=== PATIENT | male | born 1970 | race Caucasian/White ===

== ENCOUNTER 2024-04-05 17:35 | Emergency (ER) | payer OTHER ==
[~2024-04-05] VITALS: Ht 167.6 cm; Wt 63.0 kg
[2024-04-05 17:43] VITALS: O2SAT 99
[2024-04-05] MEDS ORDERED: BO1 TP (18:46)
[2024-04-05] MEDS ORDERED: IBUP-2028 MT (18:46)
[2024-04-05] MEDS: BACITRACIN ZINC OINT UDPKT TOP ONE (19:15)
[2024-04-05] MEDS: IBUPROFEN 400MG TABLET PO ONE (19:15)
[2024-04-05 19:30] VITALS: BP 121/74; PULSE 80; RESP 17; TEMP 36.39180; O2SAT 99
== END 2024-04-05 20:42 | disposition home or self-care (01) ==
LOC: ER 17:35
DX: T24.422A Corrosion of unspecified degree of left knee, initial encounter (principal); T24.421A Corrosion of unspecified degree of right knee, initial encounter; Y93.89 Activity, other specified; Y92.89 Other specified places as the place of occurrence of the external cause; Y99.8 Other external cause status
CPT/HCPCS: 73560; 99283

== ENCOUNTER 2025-01-05 09:23 | Emergency (ER) | payer OTHER, MEDICAID ==
[~2025-01-05] VITALS: Ht 167.6 cm; Wt 67.0 kg
[~2025-01-05 09:23] MED LIST: BO1 TP; IBUP-2028 MT
[2025-01-05 09:28] VITALS: O2SAT 100
[2025-01-05] MEDS: MORPHINE SULFATE 4 MG/ML INJ (FOR IV/IM USE) IV ONE (10:41)
[2025-01-05] MEDS ORDERED: ACET-2708 MT (13:36)
[2025-01-05] MEDS ORDERED: NAPR-681 MT (13:36)
[2025-01-05 13:45] VITALS: BP 114/68; PULSE 75; RESP 19; TEMP 36.7; O2SAT 100
== END 2025-01-05 14:02 | disposition home or self-care (01) ==
LOC: ER 09:23
DX: S82.142A Displaced bicondylar fracture of left tibia, initial encounter for closed fracture (principal); Z79.1 Long term (current) use of non-steroidal anti-inflammatories (NSAID); V00.831A Fall from motorized mobility scooter, initial encounter; Y93.89 Activity, other specified; Y92.89 Other specified places as the place of occurrence of the external cause; Y99.8 Other external cause status
CPT/HCPCS: 99285; 96374; 29505; 73562; J2270; 99283